=== PATIENT | male | born 1985 | race Caucasian/White ===

== ENCOUNTER 2025-03-14 18:01 | Emergency (ER) | payer MEDICAID, SELFPAY ==
[2025-03-14 18:08] VITALS: BP 170/91; PULSE 90; RESP 18; O2SAT 99; BMI 28.2
--- NOTE | 2025-03-14 18:10 | ED.GENADULT ---
HPI - General Adult General Chief complaint: Psychiatric Symptoms Stated complaint: Crisis Time Seen by Provider: 03/14/25 20:11 Source: patient Limitations: no limitations History of Present Illness ED Provider: Sandra Dickson PA-C HPI narrative: 40-year-old male with a history of polysubstance abuse, hyperlipidemia and depression presents with suicidal ideation. Patient states he has been sober for 3 years. Over the past few months he has a relapsed. He admits to using both heroin and cocaine on a regular basis. Patient has developed thoughts of self-harm, he does not have a specific plan, he states ?I can not do this anymore?. Patient is interested in detox. Related Data Home Medications ?Medication ?Instructions ?Recorded ?Confirmed clonidine HCl 0.1 mg tablet 0.1 mg PO BID PRN anxiety 03/15/25 03/15/25 hydroxyzine HCl 25 mg tablet 25 - 50 mg PO BID PRN anxiety 03/15/25 03/15/25 insulin glargine 100 unit/mL (3 38 unit subcut BEDTIME 03/15/25 03/15/25 mL) subcutaneous pen (Lantus Solostar U-100 Insulin) insulin lispro 100 unit/mL subcut 03/15/25 subcutaneous pen (Humalog KwikPen (U-100) Insulin) metformin 500 mg tablet 500 mg PO DAILY 03/15/25 03/15/25 methadone 10 mg/mL oral 105 mg PO DAILY 03/15/25 03/15/25 concentrate (Methadone Intensol) quetiapine 50 mg tablet 50 mg PO BID PRN anxiety 03/15/25 03/15/25 trazodone 50 mg tablet 50 - 100 mg PO BEDTIME 03/15/25 03/15/25 Allergies Allergy/AdvReac Type Severity Reaction Status Date / Time No Known Allergies Allergy Verified 03/14/25 18:10 Review of Systems Review of Systems: Yes all other systems are reviewed and are negative Constitutional: Constitutional: Denies fatigue and Denies fever(s) Cardiovascular: Cardiovascular: Denies chest pain and Denies dyspnea Respiratory: Respiratory: Denies cough and Denies dyspnea Gastrointestinal: Gastrointestinal: Denies abdominal pain, Denies nausea and Denies vomiting Psychiatric: Psychiatric: Reports suicidal ideation Endocrine: Endocrine: Denies fatigue PMFSH Past Medical History Attestation statement: The following information was validated with the patient. Medical History (Updated 03/16/25 @ 00:00 by Background Ariel) Pure hypercholesterolemia Depression Social History Social History Smoked in Last 30 Days: Yes Use of substances other than those prescribed or required for medical reasons: Yes Substance Use Type: Crack/Cocaine and Heroin Substance Use Frequency: Daily Advance Directives: No Advance Directives Information Provided: No Do you have a plan to hurt others: No Plan Physical Exam ED Vital Signs: Vital Signs - 24 hr 03/14/25 18:08 03/14/25 19:03 03/14/25 19:51 Temperature 97.4 F Pulse Rate 90 90 91 Respiratory Rate 18 18 16 Blood Pressure 170/91 H 170/91 H 123/78 Pulse Oximetry 99 99 97 Oxygen Delivery Method Room Air Room Air Room Air BMI result Body Mass Index 28.2 Const Other: Alert well-appearing Orientation/consciousness: patient oriented x3 Resp Effort & Inspection: normal respiratory effort Cardio Other: Normal peripheral perfusion Skin Other: Warm dry no rash Neuro General: patient oriented x3, gait normal, no focal motor deficits and CN's II-XI intact bilaterally Psych Other: Cooperative Course Course Course Narrative: RME, this is a rapid medical exam performed by Al Hathaway please refer to primary provider for complete H&P- 50-year-old male presents for evaluation of depression, increased anxiety. He endorses SI. Also endorses polysubstance abuse. Plan for medical clearance and likely care team consult Reevaluation(s) Reevaluation #1: Time: 01:42 Date: 03/15/25 Provider: JUDIE Novak Patient in physician observation for psychiatric evaluation.? No acute events reported overnight. No current complaints. VS stable.? Patient is in bed search status/pending CARE team evaluation. Will continue to monitor. Time: 01:42 Medications Administered Discontinued Medications Generic Name Dose Route Start Last Admin Trade Name Freq PRN Reason Stop Dose Admin Clonidine HCl 0.1 mg 03/15/25 08:50 03/15/25 10:03 Clonidine Hcl 0.1 Mg Tablet PO 0.1 mg BID PRN Administration Anxiety Protocol Hydroxyzine HCl 25 mg 03/15/25 08:50 03/15/25 10:03 Hydroxyzine Hcl 25 Mg Tablet PO 25 mg BID PRN Administration Anxiety Lorazepam 2 mg 03/14/25 22:37 03/14/25 22:42 Lorazepam 1 Mg Tablet PO 03/14/25 22:38 2 mg ONCE ONE Administration Metformin HCl 500 mg 03/15/25 09:00 03/15/25 10:03 Metformin Hcl 500 Mg Tablet PO 500 mg DAILY JANA Administration Methadone HCl 105 mg 03/15/25 09:45 03/15/25 10:04 Methadone Hcl 20 Mg/2 Ml Oral.Conc PO 105 mg DAILY@0800 JANA Administration Medical Decision Making Medical Decision Making MDM Narrative: 40-year-old male with a history of polysubstance abuse, hyperlipidemia and depression presents with suicidal ideation. Patient states he has been sober for 3 years. Over the past few months he has a relapsed. He admits to using both heroin and cocaine on a regular basis. Patient has developed thoughts of self-harm, he does not have a specific plan, he states ?I can not do this anymore?. Patient is interested in detox. Problem: Polysubstance abuse, depression History: Per patient I have considered the following differential diagnoses: SI, HI, decompensated psychiatric illness, drug/alcohol intoxication Plan: Patient requesting detox and he needs to see the care team. Perhaps he can get into a dual diagnosis facility. We will screen basic labs, serum ethanol and drug screen. I have independently reviewed the following tests: Labs: No leukocytosis, not anemic, ethanol less than 10, U tox positive for opiates, methadone, fentanyl, cocaine Differential Diagnosis Differential Diagnoses: The differential diagnosis associated with the presentation includes See MDM Admission/Observation Consideration of admission/observation: Escalation of care including admission/observation considered Consult Healthcare Provider Management of the patient was discussed with: Behavioral Health Provider Care team, recovery operator helper Lab Data [facility] Lab Attestation statement: I reviewed the patient's lab results. 03/14/25 18:35 03/14/25 18:35 Labs: Lab Results 03/14/25 03/14/25 Range/Units 18:35 20:52 WBC 10.6 (4.8-10.8) X10*3/uL RBC 5.61 (4.60-5.80) X10*6/uL Hgb 15.2 (14.0-18.0) g/dl Hct 44.5 (42.0-52.0) % MCV 79.3 L (80.0-98.0) fL MCH 27.1 (27.0-33.0) pg MCHC 34.2 (31.0-36.0) g/dl RDW 12.0 (11.0-16.0) % Plt Count 271 (160-400) X10*3/uL MPV 9.1 L (9.4-12.4) fL Immature Gran % (Auto) 0.4 (0.0-0.4) % Neut % (Auto) 59.3 (45-73) % Lymph % (Auto) 28.6 (20-40) % [facility] % (Auto) 7.4 (2-11) % Eos % (Auto) 3.6 (0-4) % Baso % (Auto) 0.7 (0-2) % Lymph # (Auto) 3.0 (1.2-4.9) X10*3/uL [facility] # (Auto) 0.8 (0.1-1.2) X10*3/uL Eos # (Auto) 0.4 (0.0-0.4) X10*3/uL Baso # (Auto) 0.1 (0.0-0.2) X10*3/uL Abs Immat Gran (auto) 0.04 H (0.00-0.03) X10*3/uL Absolute Neuts (auto) 6.3 (2.0-8.3) x10*3/uL Absolute Nucleated RBC 0.000 (0.0-0.012) X10*3/uL Nucleated RBC % (auto) 0.0 (0.0-0.2) /100WBC Sodium 138 (135-145) mmol/L Potassium 3.7 (3.3-5.1) mmol/L Chloride 102 (96-108) mmol/L Carbon Dioxide 24 (22-29) mmol/L Anion Gap 16 (12-20) BUN 17 H (9-16) mg/dL Creatinine 0.88 (0.5-1.4) mg/dL Estim Creat Clear Calc 119.2 Estimated GFR > 60 Random Glucose 138 H (60-115) mg/dL Calcium 9.8 (8.4-10.2) mg/dL Total Bilirubin 0.5 (0.0-1.0) mg/dL AST 29 (5-37) U/L ALT 23 (0-40) U/L Alkaline Phosphatase 96 (39-117) U/L Total Protein 8.0 (6.5-8.0) g/dL Albumin 4.9 (3.5-5.0) g/dL Salicylates < 5.0 L (15-30) mg/dL Urine Opiates Screen POSITIVE H (Not Detect) Ur Buprenorphine Scrn Not Detected (Not Detect) ng/mL Ur Oxycodone Screen Not Detected (Not Detect) ng/mL Urine Methadone Screen Positive H (Not Detect) ng/mL Urine Fentanyl Screen POSITIVE H (Not Detect) Acetaminophen < 3 (<30) mcg/mL Ur Barbiturates Screen Not Detected (Not Detect) Ur Phencyclidine Scrn Not Detected (Not Detect) Ur Amphetamines Screen Not Detected (Not Detect) U Benzodiazepines Scrn Not Detected (Not Detect) Urine Cocaine Screen POSITIVE H (Not Detect) U Marijuana (THC) Screen Not Detected (Not Detect) Ethyl Alcohol < 10 mg/dL Discharge Plan Discharge Clinical Impression: Suicidal ideation, Polysubstance abuse Patient Disposition: Home, Self-Care Prescriptions: No Action metformin 500 mg tablet 500 mg PO DAILY clonidine HCl 0.1 mg tablet 0.1 mg PO BID PRN (Reason: anxiety) hydroxyzine HCl 25 mg tablet 25 - 50 mg PO BID PRN (Reason: anxiety) insulin lispro [Humalog KwikPen Insulin] 100 unit/mL insulin pen subcut quetiapine 50 mg tablet 50 mg PO BID PRN (Reason: anxiety) insulin glargine [Lantus Solostar U-100 Insulin] 100 unit/mL (3 mL) insulin pen 38 unit subcut BEDTIME methadone [Methadone Intensol] 10 mg/mL Concentrate 105 mg PO DAILY trazodone 50 mg tablet 50 - 100 mg PO BEDTIME Interventions: [place]-Suicide Risk Severity Scale Last Done: 03/14/25 19:03 ED Discharge Assessment Last Done: 03/15/25 14:48 Discharge Date/Time: 03/15/25 14:49 Print Language: Gambian
--- NOTE | 2025-03-14 18:11 | ECG_ITS ---
Test Reason : POLYSUBSTANCE ABUSE Blood Pressure : */* mmHG Vent. Rate : 78 BPM Atrial Rate : 78 BPM P-R Int : 154 ms QRS Dur : 90 ms QT Int : 384 ms P-R-T Axes : 51 25 35 degrees QTcB Int : 437 ms Normal sinus rhythm Normal ECG No previous ECGs available Referred By: Caleb Hathaway Electronically Signed By: GALDINO OZUNA
[2025-03-14 18:39] LABS: MANUAL DIFF FLAG NO
--- OUTSIDE RECORDS SUMMARY | 2025-03-14 18:50 | XMS_ITS | Patient Health Record ---
Author Organization [facility] Address [address] [place] [id number] Care Team Providers Care Memorial Marker Designer Name Role Phone NO, PCP Primary Care Provider [phone] Osmar Valencia Unavailable [phone] Reason For Referral No Information Plan Of Treatment Next Appt Details Provider Name:Nursing [facility], 04/24/2025 01:30:00 PM, [address] [facility], [place], [address], Insurance Providers Payer Name Payer Address Payer Phone Subscriber Number Group Number Insured Name Patient Relationship to Insured Coverage Start Date Coverage End Date [place] Standard [address] [place] [phone] [id number] Kumar Bui Self - patient is the insured
[2025-03-14 19:03] VITALS: BP 170/91; PULSE 90; RESP 18; O2SAT 99
[2025-03-14 19:05] LABS: Acetaminophen LAB < 3 mcg/mL (<30); Alanine Aminotransferase 23 U/L (0-40); Albumin Level 4.9 g/dL (3.5-5.0); Alkaline Phosphatase 96 U/L (39-117); Anion Gap 16 (12-20); Aspartate Amino Transferase 29 U/L (5-37); Blood Urea Nitrogen 17 mg/dL (9-16); Calcium 9.8 mg/dL (8.4-10.2); Carbon Dioxide 24 mmol/L (22-29); Chloride 102 mmol/L (96-108); Creatinine Clr Calc Pharmacy 119.2; Estimated Glomerular Filt Rate > 60; Potassium 3.7 mmol/L (3.3-5.1); Salicylate < 5.0 mg/dL (15-30); Sodium 138 mmol/L (135-145); Total Protein 8.0 g/dL (6.5-8.0)
[2025-03-14 19:09] LABS: Hematocrit 44.5 % (42.0-52.0); Hemoglobin 15.2 g/dl (14.0-18.0); Imm Gran Abs Auto 0.04 X10*3/uL (0.00-0.03); Imm Gran Pct Auto 0.4 % (0.0-0.4); Lymphocytes Absolute Auto 3.0 X10*3/uL (1.2-4.9); Mean Corpuscular HGB Conc 34.2 g/dl (31.0-36.0); Mean Corpuscular Hemoglobin 27.1 pg (27.0-33.0); Mean Corpuscular Volume 79.3 fL (80.0-98.0); NRBC Abs Auto 0.000 X10*3/uL (0.0-0.012); NRBC Pct Auto 0.0 /100WBC (0.0-0.2); Platelet Count 271 X10*3/uL (160-400); Red Blood Count 5.61 X10*6/uL (4.60-5.80); White Blood Count 10.6 X10*3/uL (4.8-10.8)
[2025-03-14 19:51] VITALS: BP 123/78; PULSE 91; RESP 16; TEMP 36.3; O2SAT 97
[2025-03-14 21:07] LABS: Cannabinoid Screen Urine Not Detected (Not Detect)
--- NOTE | 2025-03-14 21:50 | PC.NURSE ---
Pt sleeping quietly on stretcher at this time, equal chest rise and fall.
--- NOTE | 2025-03-15 00:03 | PC.NURSE ---
Pt continuing to endorse SI, no plan. Pt is anxious and restless, PO Ativan with little effect. Pt is awaiting CARE team evaluation.
[2025-03-15 06:16] VITALS: BP 110/76; PULSE 77; RESP 20; TEMP 36.1; O2SAT 97
--- NOTE | 2025-03-15 08:44 | HE.PHANOTE ---
Re Methadone Pt receives 105mg from [facility], last dose 03/14/25 @[id number]
--- NOTE | 2025-03-15 09:30 | PHA.MEDREC ---
Pharmacy Consult ? Medication Reconciliation Pharmacy has completed the medication reconciliation. Reviewed med rec done by nursing.
[2025-03-15 10:03] VITALS: BP 114/85
[2025-03-15] MEDS: methADONE HCl 20 MG/2 ML ORAL.CONC 105 MG PO (10:04)
--- NOTE | 2025-03-15 14:22 | MHC.RECOVRN ---
Addendum entered by Jessica Aguirre RN 03/15/25 14:23: (late entry) Original Note: Pt accepted at [facility] in [place] for ATS. He is expected there mason. Primary RN, Dr Ramirez and furnace charger all aware.
--- NOTE | 2025-03-15 14:24 | MHC.CARE ---
[facility] contacted regarding a Dialysis Tech for this pt.
[2025-03-15 14:48] VITALS: BP 114/85; PULSE 87; RESP 16; TEMP 36.3
--- NOTE | 2025-03-17 07:59 | MHC.CARE ---
Referral to [facility] is complete
== END 2025-03-15 14:49 | disposition home or self-care (01) ==
PROVIDERS: Physician Assistant; Emergency Provider Emergency Medicine
DX: F33.1 Major depressive disorder, recurrent, moderate (principal); R45.851 Suicidal ideations; F11.90 Opioid use, unspecified, uncomplicated; F14.90 Cocaine use, unspecified, uncomplicated; Z79.899 Other long term (current) drug therapy; Z51.81 Encounter for therapeutic drug level monitoring
CPT/HCPCS: 36415; 80053; 80143; 80179; 80307; 85025; 93005; 99285; S9485

== ENCOUNTER → 2025-03-14 18:11 | Outpatient (BNV) | payer OTHER, SELFPAY | PROVIDERS: Emergency Provider Emergency Medicine; Visit Provider Internal Medicine | DX: F19.10 Other psychoactive substance abuse, uncomplicated (principal) | CPT/HCPCS: 93010 ==